=== PATIENT | male | born 1995 | race Caucasian/White ===

== ENCOUNTER → 2025-04-01 15:48 | Outpatient (CLI) | payer BC, SELFPAY ==
--- NOTE | ~2025-04-01 | XR_ITS ---
HISTORY: CHRONIC LOW BACK PAIN, NO SCIATICA COMPARISON: None. TECHNIQUE: 4 view lumbar spine. FINDINGS: 9 degrees of levoscoliotic curvature of the lumbar spine is appreciated. Lumbar vertebral bodies are otherwise normally aligned. There are 5 non-rib bearing lumbar vertebral bodies. Disc spaces and vertebral body heights are well maintained. There are no lytic or sclerotic lesions. Paraspinal soft tissues are unremarkable. Facet arthropathy is noted. IMPRESSION: Facet arthropathy with trace levoscoliotic curvature. No acute fractures are present. Reviewed, dictated and finalized at location A.
== END ==
LOC: EXPCRAD 15:53
PROVIDERS: PCP Nurse Practitioner Family; Visit Provider Nurse Practitioner Family
DX: M47.816 Spondylosis without myelopathy or radiculopathy, lumbar region (principal); M41.86 Other forms of scoliosis, lumbar region
CPT/HCPCS: 72110